=== PATIENT | female | born 1980 | race Caucasian/White ===

== ENCOUNTER 2016-12-01 18:14 | Emergency (ER) | payer MEDICARE, MEDICAID ==
[~2016-12-01 18:14] MED LIST: DEP125; LAMO200T
[2016-12-01 18:25] VITALS: BP 139/88; PULSE 78; RESP 20; O2SAT 98
--- NOTE | 2016-12-01 19:25 | ED.REPORT ---
HPI-Ear Pain/Problem/FB Date of Service December 01, 2016 ED Provider: Drew Escalante DO Patient is a 36 year old female with a history of cerebral palsy, seizures, brain and speech disorders who presents to the ED, with her mother as historian due to cough onset 5 days ago. Associated symptoms include fever, rhinorrhea, decreased appetite and a small erythematous area on her right arm. Nursing Notes Stated Complaint: FEVER,COUGH,NOT EATING OR DRINKING Chief Complaint: FLU/Cold Symptoms Nursing Notes Reviewed: Yes Allergies: Coded Allergies: No Known Allergies (Verified Allergy, Unknown, 11/21/06) Miscellaneous Medications Divalproex Sod-Expunged Drug, Do Not Renew! (Divalproex Sod-Expunged Drug, Do Not Renew!) 125 Mg Capsule Lamotrigine-Expunged Drug, Do Not Renew! (Lamictal-Expunged Drug, Do Not Renew! ) 200 Mg Tablet General Time Seen by MD: 19:01 Chief Complaint Other (cough) Hx Obtained From: Other family... (Mother) Arrived By: Walk-in Onset Occurred: 5 days ago Symptom Duration: Since onset Associated with: Reports: Cough, Fever, Rhinorrhea Recent Healthcare: No recent hospitalization, Recent doctor visit Past Medical History Past Medical History cerebral palsy seizure disorder brain disorder speech disorder Smoking History Never Smoker Social History Other Social History: Good social support, Lives with parents Ambulatory Status Wheelchair Review of Systems Review of Systems Note: decreased appetite Constitutional: Reports: Fever Complete sys rev & neg: except as marked. Additional Review of Systems Respiratory: Reports: Non-productive cough, Denies: Shortness of breath Allergy / Immune: Reports: Rhinorrhea Physical Exam Initial Vital Signs Vital Signs (First) Date Time Temp Pulse Resp B/P Pulse Ox O2 Delivery O2 Flow Rate FiO2 12/01/16 18:25 36.8 78 20 139/88 98 Room Air Initial VS: Reviewed General/Constitutional: Awake, Alert ENT: Atraumatic, Airway patent, Mucous membranes moist Head / Eyes: Atraumatic, Normocephalic, PERRL, EOMI Respiratory / Chest: Atraumatic, No respiratory distress crackles in the left base Cardiovascular: Heart rate NL, Regular rhythm, Heart sounds NL Skin: Atraumatic, Color NL, Warm, Dry infected and erythematous hair follicle on the right arm Abdomen: Atraumatic, Soft, Non-tender Psychiatric: Affect NL, Mood NL Interpretation & Diagnostics Lab Results Interpretation Result Diagram: 12/01/16205412/01/162054 Test 12/01/16 20:55 12/01/16 21:50 White Blood Count 5.2th/mm3 (3.8-10.1) Red Blood Count 4.31mil/mm3 (3.90-5.20) Hemoglobin 13.0g/dL (12.0-15.6) Hematocrit 39.8% (35.0-46.0) Mean Corpuscular Volume 92.3fL (81-100) Mean Corpuscular Hemoglobin 30.2pg (27.0-35.0) Mean Corpuscular Hemoglobin Concent 32.7% (32.0-37.0) Red Cell Distribution Width 14.1% (12.3-15.4) Platelet Count 201bil/L (150-400) Neutrophils (%) (Auto) 36.9% (40-74) Lymphocytes (%) (Auto) 54.8% (14-46) Monocytes (%) (Auto) 6.7% (4-12) Eosinophils (%) (Auto) 0.6% (0-5) Basophils (%) (Auto) 0.8% (0-3) Sodium Level 142mEq/L (134-144) Potassium Level 4.2mEq/L (3.5-5.2) Chloride Level 103mEq/L (97-108) Carbon Dioxide Level 25mmol/L (18-29) Blood Urea Nitrogen 11mg/dL (6-20) Creatinine 0.39mg/dL (0.57-1.00) Estimat Glomerular Filtration Rate 265mL/min (>59) Glucose Level 86mg/dL (60-99) Calcium Level 9.4mg/dL (8.5-10.1) Total Bilirubin 0.3mg/dL (0.0-1.2) Aspartate Amino Transf (AST/SGOT) 13U/L (0-50) Alanine Aminotransferase (ALT/SGPT) 11U/L (0-32) Alkaline Phosphatase 50U/L (25-150) Troponin T 0.010ug/L (0.0-0.011) Pro-B-Type Natriuretic Peptide 12.15pg/mL (0-130) Total Protein 7.2g/dL (6.4-8.4) Albumin 3.7g/dL (3.4-5.0) Procalcitonin 0.07ng/mL (0.00-0.08) Hold [place] Top Tube Received (Received) X-Ray Chest Interpretation Chest Xray Interpretation: IMPRESSION: 1. Mild pulmonary edema which may be due to congestive heart failure or noncardiogenic etiologies such as atypical infection. 2. Prominent mediastinal contours which are nonspecific but may be due to low volumes and technique. Dictated by: Cayetano De Paz M.D. on 12/01/2016 at 20:27 Approved by: Cayetano De Paz M.D. on 12/01/2016 at 20:29 View: Portable, 1 view Interpretation / Wet Read by: Interpret - Radiologist Re-Eval/Medical Decision Med Decision/Clinical Course X-ray suspicious for pneumonia. Laboratory work argues against this being pulmonary edema. As such we will treat her with oral antibiotics and close outpatient follow-up. Source of Hx: Old records Re-Evaluation/Progress #1: Time of Eval: 20:39 Re-Evaluation/Progress Note: Discussed X-ray results and plan for further testing. Re-Evaluation/Progress #2: Time of Eval: 22:13 Re-Evaluation/Progress Note: Discussed diagnosis and plan for discharge. The patient and patient's family understand and agree to the plan for discharge. All questions were addressed. Counseled Regarding: Diagnosis, Lab results, Need for follow-up, When/why to return to ED Discharge & Departure Primary Impression: Pneumonia Pneumonia type: due to unspecified organism Laterality: unspecified laterality Lung location: unspecified part of lung Qualified Code: J18.9 - Pneumonia, unspecified organism Disposition: Home Discharge Condition All VS Reviewed: Yes Condition: Stable Patient Instructions: Bacterial Pneumonia (ED) Additional Instructions: You have pneumonia. Take Amoxicillin 2x a day for the next 7 days. Take the Z- pack as directed for the next 5 days. Follow up with your primary care physician next week. Return to the emergency department if you develop any new or worsening symptoms. Referrals: Tian Cortes MD (PCP) Scribe Attestation Portions of this note were transcribed by Vianney Alegre. I, Dr. Escalante personally performed the history, physical exam and medical decision-making; I reviewed and confirmed the accuracy of the information in the transcribed note. Signed by: Flores Maravilla, 12/01/16 and [id number] copies to: Tian Cortes MD, Todd P DO December 01, 2016 19:25 Monet Alegre December 01, 2016 19:49
--- NOTE | 2016-12-01 20:31 | DRSVH ---
PROCEDURE: X-RAY CHEST, TWO VIEWS ([id number]) INDICATIONS: fever and cough TECHNIQUE: 2 views of the chest were acquired. COMPARISON: None. FINDINGS: Surgical changes and devices: None. Lungs and pleura: No pleural effusions or pneumothorax. There are low lung volumes. There is pulmon luann vascular prominence consistent with mild pulmonary edema. Mediastinum: Mediastinal contours are prominent. Heart size is enlarged. Bones and chest wall: No suspicious bony abnormalities. Soft tissues appear unremarkable. IMPRESSION: 1. Mild pulmonary edema which may be due to congestive heart failure or noncardiogenic etiologies piedra ch as atypical infection. 2. Prominent mediastinal contours which are nonspecific but may be due to low volumes and technique. Dictated by: Cayetano De Paz M.D. on 12/01/2016 at 20:27 Approved by: Cayetano De Paz M.D. on 12/01/2016 at 20:29
[2016-12-01 21:00] LABS: BASOPHILS % (AUTO) 0.8 % (0-3); EOSINOPHILS % (AUTO) 0.6 % (0-5); MONOCYTES % (AUTO) 6.7 % (4-12); Mean Corpuscular Hemoglobin 30.2 pg (27.0-35.0); Mean Corpuscular Volume 92.3 fL (81-100); NEUTROPHILS % (AUTO) 36.9 % (40-74); Platelet Count 201 bil/L (150-400)
[2016-12-01 21:28] LABS: TROPONIN T 0.01 ug/L (0.0-0.011)
[2016-12-01] MEDS ORDERED: cefTRIAXone Inj 2,000 MG in Dextrose 5% Minibag Plus 50 ML IV ONE (21:35)
[2016-12-01 22:37] VITALS: BP 134/64; PULSE 70; RESP 16; O2SAT 95
[2016-12-01 22:40] VITALS: BP 134/64; PULSE 70; RESP 22; O2SAT 94
[2016-12-02] MEDS ORDERED: Sodium Chloride LOK Flush 10 mL Syringe IVFLUSH SCH (00:30)
== END 2016-12-01 22:41 | disposition home or self-care (01) ==
LOC: SED 18:14
DX: J18.9 Pneumonia, unspecified organism (principal)
CPT/HCPCS: 36415; 71020; 80053; 83880; 84145; 84484; 85025; 87804; 96365; 99285; J0696